=== PATIENT | male | born 1950 | race Caucasian/White ===

== ENCOUNTER 2016-04-24 14:17 | Emergency (ER) | payer MEDICARE | END 2016-04-24 15:23 | disposition home or self-care (01) | DX: S29.8XXA Other specified injuries of thorax, initial encounter (principal); W01.0XXA Fall on same level from slipping, tripping and stumbling without subsequent striking against object, initial encounter; I71.4 Abdominal aortic aneurysm, without rupture; K74.60 Unspecified cirrhosis of liver; B19.20 Unspecified viral hepatitis C without hepatic coma; F17.200 Nicotine dependence, unspecified, uncomplicated ==

== ENCOUNTER 2017-04-29 12:58 | Outpatient (CLI) | payer OTHER ==
[2017-04-29 12:48] LABS: CALCIUM 8.9 mg/dL (8.5-10.3)
[2017-04-29] MEDS ORDERED: IOPAMIDOL-300 100 ML VIAL ONE (13:12)
[2017-04-29] MEDS ORDERED: IOPAMIDOL-300 100 ML VIAL IVP ONE (13:39)
--- NOTE | 2017-04-30 09:20 | CT Report ---
DATE OF SERVICE: 04/29/2017 CT ANGIOGRAM AORTA: 04/29/2017 CLINICAL INDICATION: Thoracic aortic aneurysm. TECHNIQUE: Axial CT images of the chest were obtained with 100 mL Isovue 300 intravenously. Sagittal and coronal 3-D reconstructions were performed. No previous CT is available for comparison. FINDINGS: The heart and great vessels demonstrate atherosclerotic calcifications. There is dilatation of the ascending aorta, measuring 4.5 cm just above the sinus of Valsalva, and 4.9 x 4.9 cm at the level of the main pulmonary artery. There is mild ectasia of the aortic arch, without jessica aneurysmal dilatation, and the descending aorta is normal in caliber. No hilar or mediastinal lymphadenopathy is appreciated. The lungs demonstrate mild emphysema. No pulmonary nodule or mass lesion is appreciated. No effusion or pneumothorax is present. Limited evaluation of upper abdominal structures demonstrates normal adrenal glands. There is nodularity of the surface contour of the liver, and prominent vascular structures, suggestive of cirrhosis and portal hypertension. Osseous structures demonstrate degenerative changes. IMPRESSION: 1. DILATED ASCENDING AORTA, MEASURING UP TO 4.9 CM. NO EVIDENCE OF DISSECTION. 2. EMPHYSEMA, MILD. 3. NODULAR APPEARANCE OF THE LIVER AND POSSIBLE VARICES. In accordance with CT protocol optimization, one or more of the following dose reduction techniques were utilized for this exam: automated exposure control, adjustment of mA and/or KV based on patient size, or use of iterative reconstructive technique. TD: 04/30/2017 10:19
== END 2017-04-29 12:59 | disposition home or self-care (01) ==
LOC: DI 12:58
PROVIDERS: ATTEND Physician Assistant Medical
DX: I71.2 Thoracic aortic aneurysm, without rupture (principal)
CPT/HCPCS: 36415; 71275; 80048; Q9967

== ENCOUNTER 2017-05-30 12:42 | Outpatient (CLI) | payer OTHER ==
--- NOTE | 2017-05-30 16:02 | Ultrasound Report ---
ABDOMINAL ULTRASOUND: 05/30/2017 CLINICAL INDICATION: Cirrhosis, splenomegaly, aneurysm. TECHNIQUE: Real-time scanning was performed with [employer] representative static images obtained. FINDINGS: The liver measures 19 cm. Hepatic echogenicity is heterogeneous, with a nodular contour, compatible with cirrhosis. No focal hepatic lesion or intrahepatic biliary dilatation is present. The common bile duct measures 4 mm. The gallbladder is normal, as is the visualized pancreas. The right kidney measures 11.5 cm, and is unremarkable. The left kidney measures 12.0 cm, and demonstrates a 3 cm cortical cyst. The spleen is enlarged, measuring 15.7 cm. No focal splenic lesion is seen. There is mild aneurysmal dilatation of the distal abdominal aorta, measuring up to 3.1 cm. The inferior vena cava is unremarkable. No free fluid is present. IMPRESSION: CIRRHOSIS WITH SPLENOMEGALY, COMPATIBLE WITH PORTAL HYPERTENSION. SMALL DISTAL ABDOMINAL AORTIC ANEURYSM, MEASURING 3.1 CM. TD: 05/30/2017 16:02
== END 2017-05-30 12:43 | disposition home or self-care (01) ==
LOC: DI 12:42
PROVIDERS: ATTEND Physician Assistant Medical
DX: K74.60 Unspecified cirrhosis of liver (principal); R16.1 Splenomegaly, not elsewhere classified; I71.4 Abdominal aortic aneurysm, without rupture
CPT/HCPCS: 76700

== ENCOUNTER 2017-09-29 14:32 | Outpatient (CLI) | payer OTHER ==
[2017-09-29] MEDS ORDERED: IOPAMIDOL-300 100 ML VIAL ONE (14:54)
[2017-09-29] MEDS ORDERED: IOPAMIDOL-300 100 ML VIAL IVP ONE (16:27)
--- NOTE | 2017-09-30 08:36 | CT Report ---
Procedure Date: 09/29/2017 Accession Number: [id number] / [id number] Procedure: CT - Chest Angio (AORTA) CPT Code: FULL RESULT: EXAM: Chest Angio (AORTA) DATE: 09/29/2017 4:32 PM CLINICAL HISTORY: THORACIC AORTA ANEURYSM WITHOUT RUPTURE, intermittent chest pain COMPARISON: 04/29/2017 TECHNIQUE: Routine helical imaging was performed through the chest in the arterial phase. IV Contrast: 100 mL Isovue 300 Reconstructions: Coronal, sagittal, and 3-D MIP reconstructions of the aorta. In accordance with CT protocol optimization, one or more of the following dose reduction techniques were utilized for this exam: automated exposure control, adjustment of mA and/or KV based on patient size, or use of iterative reconstructive technique. FINDINGS: Vascular Structures: There is stable dilatation of the ascending aorta, measuring 4.9 cm. Atherosclerotic calcifications are present. No dissection. The great vessels are patent. Lungs/Pleura: Stable emphysema. No pulmonary nodule or mass lesion. Mediastinum: Normal. No cardiac enlargement or adenopathy. Upper Abdomen: Stable nodular appearance of the liver and likely varices. Other: None. IMPRESSION: Stable dilatation of the ascending aorta, measuring 4.9 cm. No significant interval change. [facility]
== END 2017-09-29 14:33 | disposition home or self-care (01) ==
LOC: DI 14:32
PROVIDERS: ATTEND Physician Assistant Medical
DX: I71.2 Thoracic aortic aneurysm, without rupture (principal); Z13.228 Encounter for screening for other metabolic disorders
CPT/HCPCS: 36415; 71275; 80048; Q9967

== ENCOUNTER 2018-10-08 14:27 | Outpatient (CLI) | payer OTHER ==
--- NOTE | 2018-10-08 16:16 | Ultrasound Report ---
Reason: CIRRHOSIS OF LIVER WITH ASCITES,UNSPECIFIED HEPATI Procedure Date: 10/08/2018 Accession Number: [id number] / [id number] Procedure: US - Abdomen Limited CPT Code: FULL RESULT: EXAM: ABDOMEN ULTRASOUND LIMITED, RUQ EXAM DATE: 10/08/2018 03:20 PM. CLINICAL HISTORY: CIRRHOSIS OF LIVER WITH Ascites, unspecified HEPATIS. COMPARISON: 05/30/2017. TECHNIQUE: Real-time scanning was performed with static images obtained. FINDINGS: Liver: Increased both in size and echotexture. 18.3 cm. nodular hepatic contour. No solid masses. Main portal vein flow: Hepatopetal. Gallbladder: No stones, wall thickening, or sonographic Ledesma's sign. Biliary System: CBD measures 6.8 mm. No intrahepatic or extrahepatic ductal dilatation. Free fluid: None. Right kidney: 12.5 cm, unremarkable IMPRESSION: Cirrhotic appearance of the liver. Otherwise negative right upper quadrant ultrasound. [facility]
== END 2018-10-08 14:28 | disposition home or self-care (01) ==
LOC: DI 14:27
PROVIDERS: ATTEND Physician Assistant Medical
DX: K74.60 Unspecified cirrhosis of liver (principal); R18.8 Other ascites
CPT/HCPCS: 76705

== ENCOUNTER 2018-11-25 12:11 | Outpatient (CLI) | payer OTHER ==
[2018-11-25 12:31] LABS: BASOPHILS # (AUTO) 0.1 10^3/uL (0.0-0.1); BASOPHILS % (AUTO) 1.1 %; EOSINOPHILS # (AUTO) 0.3 10^3/uL (0.0-0.7); EOSINOPHILS % (AUTO) 5.2 %; HGB - HEMOGLOBIN 15.4 g/dL (14.0-18.0); LYMPHOCYTES # (AUTO) 1.5 10^3/uL (1.5-3.5); LYMPHOCYTES % (AUTO) 22.2 %; MEAN CORPUSCULAR HEMOGLOBIN 33.8 pg (27.0-31.0); MEAN CORPUSCULAR HGB CONC 34.4 g/dL (32.0-36.0); MEAN CORPUSCULAR VOLUME 98.2 fL (80.0-94.0); MEAN PLATELET VOLUME 12.2 fL (7.4-11.4); MONOCYTES # (AUTO) 0.6 10^3/uL (0.0-1.0); MONOCYTES % (AUTO) 9.7 %; NEUTROPHILS % (AUTO) 61.5 %; PLT - PLATELET COUNT 58 10^3/uL (130-450); RED BLOOD COUNT 4.56 10^6/uL (4.70-6.10); RED CELL DISTRIBUTION WIDTH 12.7 % (12.0-15.0); WHITE BLOOD COUNT 6.5 x10^3/uL (4.8-10.8)
[2018-11-25 12:47] LABS: ALBUMIN 3.5 g/dL (3.2-5.5); ALBUMIN/GLOBULIN RATIO 0.9 (1.0-2.2); BILIRUBIN,TOTAL 1.4 mg/dL (0.2-1.0); CALCIUM 8.7 mg/dL (8.5-10.3); CREATININE 0.8 mg/dL (0.6-1.2); TOTAL PROTEIN 7.3 g/dL (6.7-8.2)
== END 2018-11-25 12:12 | disposition home or self-care (01) ==
LOC: LAB 12:11
PROVIDERS: ATTEND Internal Medicine Cardiovascular Disease
DX: I35.0 Nonrheumatic aortic (valve) stenosis (principal); I10 Essential (primary) hypertension; I71.2 Thoracic aortic aneurysm, without rupture; K74.60 Unspecified cirrhosis of liver
CPT/HCPCS: 36415; 80053; 82140; 85025